=== PATIENT | female | born 1945 | race Caucasian/White ===

== ENCOUNTER 2025-10-18 00:23 | Emergency (ER) | payer MEDICARE, SELFPAY ==
--- NOTE | ~2025-10-18 | CT_ITS ---
EXAM/PROCEDURE: CT lumbar spine wo con HISTORY: fall, unwitnessed, unknown mech, back pain COMPARISON: None available. TECHNIQUE: Lumbar spine CT FINDINGS: Chronic compression fracture L3 with vertebroplasty changes. No gross acute or aggressive bone or soft tissue process seen. Advanced degenerative changes throughout the lumbar spine involving both disc spaces and posterior elements. Severe degenerative changes at L3-4 with probably severe spinal canal stenosis. At least mild spinal canal stenosis at L4-5. Milder degenerative changes at levels above and below. IMPRESSION: No gross acute or aggressive bony or soft tissue process; advanced degenerative changes including moderate possibly severe spinal canal stenosis at L4-5. Correlate with lumbar spine MRI for optimal sensitivity as clinically appropriate. Note: Preliminary radiology report provided by stat read radiologist. Reviewed, dictated and finalized at location A. BREAKDOWN PROCESSOR IMPRESSION: No gross acute or aggressive bony or soft tissue process; advanced degenerative changes including moderate possibly severe spinal canal stenosis at L4-5. [place] elate with lumbar spine MRI for optimal sensitivity as clinically appropriate. Note: Preliminary radiology report provided by stat read radiologist.
--- NOTE | ~2025-10-18 | CT_ITS ---
CT HEAD NON-CONTRAST CT C-SPINE Clinical History: fall, unwitnessed, unknown [facility] Comparison: None Technique: Unenhanced axial images skull base to vertex. Coronal, sagittal reformats. Axial images thoracic inlet to skull base. Sagittal and coronal reformats. CT images acquired with automatic exposure control for dose reduction DLP: 681 mGy-cm Findings: Head: Large left MCA distribution encephalomalacia. Mild chronic white matter microvascular ischemic changes. Sulci, ventricles: Unremarkable. No intracerebral hemorrhage. No mass effect, midline shift, intra-/extra-axial fluid collection. Large chronic calvarial indentation right parietal. Visualized paranasal sinuses: Clear. Mastoid air cells: Clear. Posterior scalp cysts with calcifications. C-spine: Tiny avulsion fracture spinous process C1, seen only on sagittal. No other acute fracture. Grade 2 anterolisthesis C4 on 5. Vertebral bodies normal height and alignment. Moderate degenerative changes. Multilevel disc disease. Prevertebral soft tissues within normal limits. Visualized lung apices: Clear. Visualized thyroid: Unremarkable. No enlarged cervical nodes. IMPRESSION: HEAD: 1. No acute intracranial findings. C-SPINE: 1. Tiny avulsion fracture spinous process of C1. 2. Otherwise no acute abnormality. Reviewed, dictated and finalized at location R. STAFF ACCOUNTANT IMPRESSION: HEAD: 1. No acute intracranial findings. C-SPINE: 1. Tiny avulsion fracture spinous process of C1. 2. Otherwise no acute abnormality.
[2025-10-18 00:26] VITALS: BP 161/75; PULSE 52; RESP 15; TEMP 36.9; O2SAT 93
--- NOTE | 2025-10-18 00:37 | ED_ITS ---
HPI - Fall General Chief Complaint: Fall Stated Complaint: UNWITNESSED FALL Time Seen by Provider: 10/18/25 00:28 History of Present Illness HPI Narrative: Patient is an 80-year-old female who presents to the ER after sustaining hold unwitnessed. She is A&O x1 baseline. Per EMS patient has a history of a stroke. Upon time of examination patient endorses pain with palpation to neck and spine. It is unknown whether or not patient lost consciousness. Patient is not on blood thinners. Review of Systems Review of Systems: All systems reviewed & are unremarkable except as noted in HPI and below Exam Narrative: GENERAL: Well appearing, well-nourished, non-toxic, in no acute distress. HEAD: Normocephalic, atraumatic. NECK: Supple. No adenopathy, no masses. Pain with palpation to cervical spine RESPIRATORY: Airway patent, respirations nonlabored. Clear to auscultation bilaterally, no rales, rhonchi, wheezing. CARDIOVASCULAR: Regular rate and rhythm without murmurs, rubs, or gallops. Peripheral pulses 2+ and equal bilaterally. ABDOMINAL: Soft, nontender, nondistended, no hepatosplenomegaly. Normoactive BS. MUSCULOSKELETAL: Moves all extremities. Able to sit up in bed on own. Pain with palpation to lumbar spine SKIN: Warm, dry, normal color. No rashes. NEURO: A&O X1. Speech unclear (baseline) PSYCHIATRIC: Appropriate mood and affect. Normal interaction. Course Vital Signs Vital signs: Vital Signs Temperature 36.9 C 10/18/25 00:26 Pulse Rate 52 L 10/18/25 00:26 Respiratory Rate 15 10/18/25 00:26 Blood Pressure 161/75 H 10/18/25 00:26 Pulse Oximetry 93 10/18/25 00:26 Oxygen Delivery Room Air 10/18/25 00:26 Temperature 36.9 C 10/18/25 00:26 Pulse Rate 52 L 10/18/25 00:26 Respiratory Rate 15 10/18/25 00:26 Blood Pressure 161/75 H 10/18/25 00:26 Pulse Oximetry 93 10/18/25 00:26 Oxygen Delivery Room Air 10/18/25 00:26 MDM - Fall MDM Narrative Medical decision making narrative: Patient is an 80-year-old female who presents to the ER after sustaining hold unwitnessed. She is A&O x1 baseline. Per EMS patient has a history of a stroke. Upon time of examination patient endorses pain with palpation to neck and spine. It is unknown whether or not patient lost conscio usness. Patient is not on blood thinners. Labs Ordered: UA Imaging Ordered: CT head, CT cervical spine, CT lumbar spine Medications Ordered: None necessary Results: Patient's CT lumbar spine indicates no paraspinal soft tissue abnormality identified. No acute osseous traumatic injury or significant acute traumatic abnormal alignment involving the lumbar spine. Chronic compression fracture at L3 level with post vertebroplasty/kyphoplasty changes noted. Diffuse disc spondylosis with narrowing and marginal hypertrophic osteophyte changes. Vacuum phenomena at T12-L1, L1-L2, L4-L5, and L5-S1. Presumed incidental grade 1 anterolisthesis involving L4 on L5. Facet hypertrophic changes noted at several levels. Moderate canal narrowing at L4-L5 level secondary to annular disc bulge and facet hypertrophic changes. Patient's CT scan indicates no acute osseous traumatic injury or significant acute traumatic abnormal alignment involving the cervical spine. Her head CT scan indicates no intracranial hemorrhage. No significant mass effect. No skull fracture. No significant overlying soft tissue traumatic injury identified. No radiopaque foreign body or subcutaneous emphysema. Large area somewhat cystic chronic encephalomalacia involving the left MCA territory involving the temporoparietal regions with involvement of the posterior insular lobe. Diffuse underlying parenchymal involutional changes. Minimal periventricular deep white matter presumed chronic microvascular disease. The paranasal sinuses and mastoid air cells are well-aerated. Diagnosis: fall, lumbar strain Patient Education/Shared MDM: Patient's CT scans did not indicate any acute abnormalities. She is resting comfortably on her stretcher at time of reexamination. Patient will be discharged back to her long-term care nursing facility and should follow-up with her PCP as soon as possible for further evaluation and treatment. Pt will not be discharged home with any new prescriptions. Strict return precautions provided. Patient verbalized understanding and is in agreement with plan. Vital signs stable at time of discharge. All questions answered. Differential Diagnosis Differential diagnosis: Likely syncope, compression fracture, concussion with loss of consciousness and concussion without loss of consciousness Lab Data Attestation: I reviewed the patient's lab results. Labs: Lab Results 10/18/25 Range/Units 00:48 Urine Color Yellow (Yellow) Urine Appearance Clear (Clear) Urine pH 5.5 (5.0-9.0) Ur Specific [place] 1.010 (1.001-1.035) Urine Protein Negative (Negative) mg/dL Urine Glucose (UA) Negative (Negative) mg/dL Urine Ketones Negative (Negative) mg/dL Ur Blood (Man) Negative (Negative) Urine Nitrate Negative (Negative) Urine Bilirubin Negative (Negative) Urine Urobilinogen 0.2 (<2.0) mg/dL Leukocyte Esterase Rfl Negative (Negative) DAVID/UL Imaging Data Attestation: I personally reviewed and interpreted this imaging study as follows: Radiologist's impression: Patient's CT lumbar spine indicates no paraspinal soft tissue abnormality identified. No acute osseous traumatic injury or significant acute traumatic abnormal alignment involving the lumbar spine. Chronic compression fracture at L3 level with post vertebroplasty/kyphoplasty changes noted. Diffuse disc spondylosis with narrowing and marginal hypertrophic osteophyte changes. Vacuum phenomena at T12-L1, L1-L2, L4-L5, and L5-S1. Presumed incidental grade 1 anterolisthesis involving L4 on L5. Facet hypertrophic changes noted at several levels. Moderate canal narrowing at L4-L5 level secondary to annular disc bulge and facet hypertrophic changes. Patient's CT scan indicates no acute osseous traumatic injury or significant acute traumatic abnormal alignment involving the cervical spine. Her head CT scan indicates no intracranial hemorrhage. No significant mass effect. No skull fracture. No significant overlying soft tissue traumatic injury identified. No radiopaque foreign body or subcutaneous emphysema. Large area somewhat cystic chronic encephalomalacia involving the left MCA territory involving the temporoparietal regions with involvement of the posterior insular lobe. Diffuse underlying parenchymal involutional changes. Minimal periventricular deep white matter presumed chronic microvascular disease. The paranasal sinuses and mastoid air cells are well-aerated. Discharge Plan Discharge Clinical Impression: Fall, Acute on chronic back pain Patient Disposition: [facility]As[facility] Living Condition: Stable Instructions: Antibiotic Form, Fall Prevention for Older Adults (ED) Additional Instructions: Please return to the ER with any worsening symptoms. Follow-up with your primary care provider as soon as possible for further evaluation. Take all medications as prescribed, including regularly scheduled medications. You may take Tylenol and use lidocaine patches for pain control. Patient Language: Lithuanian Prescriptions: New acetaminophen 500 mg tablet 1,000 mg PO TID PRN (Reason: fever or pain) Qty: 30 0RF lidocaine 5 % adhesive patch,medicated 2 patch topical DAILY Qty: 30 0RF Rx Instructions: leave on most painful area for up to 12 hrs Follow-up/Referrals: UNKNOWN,DOCTOR [Primary Care Provider]
[2025-10-18 00:53] LABS: Add Urine Microscopic? NO; Appearance Urine Clear (Clear); Glucose Urine UA Negative (Negative); Leukocyte Esterase Ur Negative LEU/UL (Negative); Nitrate Urine Negative (Negative); Specific Grav Ur 1.010 (1.001-1.035)
[2025-10-18 01:21] VITALS: BP 157/73; PULSE 60; RESP 17; O2SAT 98
[2025-10-18 04:21] VITALS: BP 151/76; PULSE 59; RESP 15; O2SAT 97
--- NOTE | 2025-10-18 05:51 | PC.NURSE ---
EMS arrived to take pt to [facility]. [facility] called and notified
[2025-10-18 06:17] VITALS: BP 151/76; PULSE 59; RESP 15; O2SAT 97
== END 2025-10-18 06:20 ==
PROVIDERS: Emergency Provider Registered Nurse
DX: S19.9XXA Unspecified injury of neck, initial encounter (principal); S39.92XA Unspecified injury of lower back, initial encounter; G89.29 Other chronic pain; Z86.73 Personal history of transient ischemic attack (TIA), and cerebral infarction without residual deficits; M48.061 Spinal stenosis, lumbar region without neurogenic claudication; W19.XXXA Unspecified fall, initial encounter
CPT/HCPCS: 70450; 72125; 72131; 81003; 99284

== ENCOUNTER 2025-11-09 03:12 | Emergency (ER) | payer MEDICARE, SELFPAY ==
--- NOTE | ~2025-11-09 | CT_ITS ---
CT HEAD NON-CONTRAST CT C-SPINE Clinical History: unwitnessed fall, strike to head Comparison: CT brain and C-spine 10/18/2025 Technique: Unenhanced axial images skull base to vertex. Coronal, sagittal reformats. Axial images thoracic inlet to skull base. Sagittal and coronal reformats. CT images acquired with automatic exposure control for dose reduction DLP: 681 mGy-cm Findings: Head: Large left MCA distribution chronic infarct. Minimal chronic white matter microvascular ischemic changes. Large chronic calvarial indentation right parietal. Sulci, ventricles: Unremarkable. No intracerebral hemorrhage. No evidence acute territorial infarct. No mass effect, midline shift, intra-/extra-axial fluid collection. Visualized paranasal sinuses: Clear. Mastoid air cells: Clear. Posterior scalp cysts with calcifications as before. C-spine: No acute fracture. Tiny chronic avulsion fracture C1 spinous process. Chronic grade 2 anterolisthesis C4 on 5. Moderate degenerative changes. Disc spaces maintained. Prevertebral soft tissues within normal limits. Visualized lung apices: Clear. Visualized thyroid: Unremarkable. No enlarged cervical nodes. IMPRESSION: HEAD: 1. No acute intracranial findings. C-SPINE: 1. No acute fracture. Reviewed, dictated and finalized at location R. ER ROOM OPERATOR IMPRESSION: HEAD: 1. No acute intracranial findings. C-SPINE: 1. No acute fracture.
--- NOTE | ~2025-11-09 | XR_ITS ---
Examination: XR shoulder RT min 2V Clinical History: fall, hit right arm Comparison: None Technique: 3 views right shoulder Findings/impression: 1. No fracture or dislocation right shoulder. 2. Moderate degenerative changes glenohumeral and AC joints. Reviewed, dictated and finalized at location R. PINNER
[2025-11-09 03:28] VITALS: BP 139/68; PULSE 58; RESP 18; TEMP 36.7; O2SAT 100
--- NOTE | 2025-11-09 04:31 | ED.FALL ---
HPI - Fall General Chief Complaint: Fall Stated Complaint: FALL Time Seen by Provider: 11/09/25 04:27 Source: EMS Mode of arrival: EMS Limitations: dementia History of Present Illness HPI Narrative: This is an 80-year-old female with prior history of CVA in aphasic do that who presents [facility] the ED [facility] for an unwitnessed fall. Per EMS, patient was found on the ground by staff with hematoma on her scalp and injury to her right shoulder. She was responsive and needed help getting up. History otherwise limited due to the patient's aphasia. Related Data Allergies Allergy/AdvReac Type Severity Reaction Status Date / Time clarithromycin Allergy Unknown Unknown Verified 10/18/25 05:35 levofloxacin Allergy Unknown Unknown Verified 10/18/25 05:35 Review of Systems Review of Systems: ROS unobtainable: Yes unobtainable due to mental status Exam Narrative: APPEARANCE: No acute distress, nontoxic, resting in bed EYES: EOMI HEENT: Normocephalic, 2 cm laceration to the vertex of the scalp, bleeding controlled RESPIRATORY: No respiratory distress Clear to auscultation bilaterally with no rhonchi wheezing or rales. CARDIOVASCULAR: Regular rate and rhythm without murmurs rubs or gallops. ABDOMINAL: Soft, nontender, nondistended, no rebound or guarding MUSCULOSKELETAl: Moves all extremities. Mild tenderness and swelling over the right shoulder NEURO: Awake and alert. Aphasic, no focal deficits SKIN:: Warm, dry. No rashes lesions or abrasions PSYCHIATRIC: Normal affect/mood, Course Vital Signs Vital signs: Vital Signs Temperature 98.0 F 11/09/25 03:28 Pulse Rate 58 L 11/09/25 03:28 Respiratory Rate 18 11/09/25 03:28 Blood Pressure 139/68 11/09/25 03:28 Pulse Oximetry 100 11/09/25 03:28 Oxygen Delivery Room Air 11/09/25 03:28 Temperature 97.5 F L 11/09/25 06:34 Pulse Rate 54 L 11/09/25 06:34 Respiratory Rate 18 11/09/25 06:34 Blood Pressure 152/87 H 11/09/25 06:34 Pulse Oximetry 100 11/09/25 06:34 Oxygen Delivery Room Air 11/09/25 03:28 Procedures Laceration Laceration 1: Date: 11/09/25 Time: 06:30 Site: scalp Size (cm): 2 Description: linear Depth: simple, single layer Pre-repair: wound explored and irrigated ====== Skin Level ====== Skin layer closed with: herbert Number of sutures: 4 ====== Subcutaneous Layer ====== ====== Muscle Layer ====== ====== Tendon Layer ====== [facility] Narrative Medical decision making narrative: 80-year-old female Presenting for unwitnessed fall. On initial evaluation patient was in no acute distress afebrile, hemodynamic stable. She was dysphasic but this is baseline per [facility]. Differentials include but are not limited to: Fracture, sprain, strain, contusion, intracranial hemorrhage, concussion, subdural hematoma, fracture Notable exam findings: 2 cm laceration to the posterior scalp with bleeding controlled, mild swelling over the right shoulder I personally reviewed the patient's images and interpret as follows: Shoulder x-ray right: No acute fractures CT head and C-spine as interpreted by radiology: No acute abnormalities Patient remained at her baseline throughout her ED course. She was given an updated Tdap. Laceration was repaired as above: Patient tolerated procedure well. Patient was deemed appropriate for discharge back to [facility] at this time. Advised follow-up with the patient's PCP in the next week for re-evaluation and staple removal. Differential Diagnosis Differential Diagnosis: Fracture, sprain, strain, contusion, intracranial hemorrhage, concussion, subdural hematoma, fracture Imaging Data Attestation: I personally reviewed and interpreted this imaging study as follows: Radiologist's impression: ITS Impressions Cervical Spine CT 11/09/25 06:45 IMPRESSION: HEAD: 1. No acute intracranial findings. C-SPINE: 1. No acute fracture. Head CT 11/09/25 06:45 IMPRESSION: HEAD: 1. No acute intracranial findings. C-SPINE: 1. No acute fracture. Discharge Plan Discharge Clinical Impression: History of cardioembolic cerebrovascular accident (CVA) Fall Qualifiers: Encounter type: initial encounter Qualified Code(s): W19.XXXA - Unspecified fall, initial encounter Laceration of scalp Qualifiers: Encounter type: initial encounter Qualified Code(s): S01.01XA - Laceration without foreign body of scalp, initial encounter Patient Disposition: Home Condition: Stable Instructions: Antibiotic Form, Head Injury (ED), Staple Care (ED) Additional Instructions: [place] may be removed in the next 5-7 days. Patient Language: Zimbabwean Prescriptions: No Action acetaminophen 500 mg tablet 1,000 mg PO TID PRN (Reason: fever or pain) Qty: 30 0RF lidocaine 5 % adhesive patch,medicated 2 patch topical DAILY Qty: 30 0RF Rx Instructions: leave on most painful area for up to 12 hrs Follow-up/Referrals: UNKNOWN,DOCTOR [Primary Care Provider]
[2025-11-09] MEDS: TETANUS,DIPHTHERIA,AC PERTUSSIS ADULT (0.5 ML) BOOSTRIX IM (05:33)
[2025-11-09 06:34] VITALS: BP 152/87; PULSE 54; RESP 18; TEMP 36.4; O2SAT 100
== END 2025-11-09 06:38 ==
PROVIDERS: Emergency Provider Student in an Organized Health Care Education/Training Program
DX: S01.01XA Laceration without foreign body of scalp, initial encounter (principal); S49.91XA Unspecified injury of right shoulder and upper arm, initial encounter; Z23 Encounter for immunization; I69.920 Aphasia following unspecified cerebrovascular disease; W19.XXXA Unspecified fall, initial encounter
CPT/HCPCS: 12001; 70450; 72125; 73030; 90471; 90715; 99284

== ENCOUNTER 2025-11-16 08:18 | Emergency (ER) | payer MEDICARE, SELFPAY ==
--- NOTE | ~2025-11-16 | CT_ITS ---
EXAMINATION:CT diagnostic chest w con DATE: 11/16/2025 09:18 INDICATION: Left-sided chest pain status post fall TECHNIQUE: Computed tomography (CT) of the chest was performed without intravenous contrast. The dose-length product (DLP) was 143.52 mGy-cm. COMPARISON: Lower chest portion of lumbar spine CT October 18, 2025.. FINDINGS: Fibrotic and atelectatic appearing changes in the left lung base. Large hiatal hernia noted with most of the gastric body herniated into the lower chest; no obvious volvulus. Air cysts formation present along the left lateral margin of the hernia not grossly changed from the October 18 exam. No pneumothorax hemothorax or pulmonary contusion seen. Heart and great vessels appear normal with no thoracic aortic aneurysm, dissection or acute aortic injury. Central and main pulmonary arteries are patent. Heart size normal with no significant pericardial effusion. Coronary artery calcification present. No displaced acute appearing rib fracture. Dystrophic cortical changes along the inferior margin of the posterior ninth and 10th ribs may be from old injury. Diffuse osteopenic, degenerative and kyphotic changes throughout the thoracic spine with no thoracic vertebral body fracture seen. Vertebroplasty changes present at L2. No bulky lymphadenopathy. Central and large airways are patent. No acute abnormality seen in the visualized upper abdomen or extrathoracic soft tissues. IMPRESSION: 1. No gross acute intrathoracic injury. 2. Probable old fractures involving the posterior left ninth and 10th ribs. Correlate with clinical exam. 3. Large hiatal hernia with most of the gastric body herniated into the lower chest. Reviewed, dictated and finalized at location A. D CARE WORKER IMPRESSION: 1. No gross acute intrathoracic injury. 2. Probable old fractures involving the posterior left ninth and 10th ribs. Cor relate with clinical exam. 3. Large hiatal hernia with most of the gastric body herniated into the lower c hest.
--- NOTE | ~2025-11-16 | CT_ITS ---
CT HEAD NON-CONTRAST Clinical History: fall/head injury Comparison: 11/09/2025 Technique: Unenhanced axial images skull base to vertex Coronal, sagittal reformats CT images acquired with automatic exposure control for dose reduction DLP: 681 mGy-cm Findings: Large left MCA distribution chronic infarct. Mild chronic white matter microvascular ischemic changes. Large chronic calvarial indentation right parietal. Sulci, ventricles: Ex vacuo dilatation left lateral ventricle. No intracerebral hemorrhage. No evidence acute territorial infarct. No mass effect, midline shift. Bony calvarium intact. Visualized paranasal sinuses: Clear. Mastoid air cells: Clear. Posterior scalp cysts with calcifications as before. IMPRESSION: 1. No acute intracranial findings or change from one week prior. Reviewed, dictated and finalized at location R. [employer]
[2025-11-16 08:17] VITALS: BP 120/54; PULSE 65; RESP 14; TEMP 37.2; O2SAT 100
[2025-11-16 09:10] LABS: Hematocrit 27.7 % (37.0-47.0); Hemoglobin 8.8 g/dL (12.0-15.0); Immature Granulocyte Percent A 0.4 % (0-0.5); Lymphocytes Absolute Auto 0.69 K/mm3 (0.9-3.2); Mean Corpuscular HGB Conc 31.8 g/dl (32-36); Mean Corpuscular Hemoglobin 26.0 pg (26-34); Mean Corpuscular Volume 82.0 fl (80-100); Nucleated Red Blood Cells Absolute Auto 0.000 K/mm3 (0.0-0.012); Nucleated Red Blood Cells Perc 0.0 % (0.0-0.2); Platelet Count Result 212 k/mm3 (150-375); Red Blood Count 3.38 M/mm3 (4.2-5.4); White Blood Count 7.5 K/mm3 (4.5-10.0)
[2025-11-16 09:12] LABS: Estimated CRCL calculation 27 ml/min; Estimated Glomerular Filt Rate 43
[2025-11-16 09:34] LABS: Anion Gap 9 mmol/L (4-12); Blood Urea Nitrogen 11 mg/dL (7-17); Calcium 8.1 mg/dL (8.4-10.2); Carbon Dioxide 22 mmol/L (22-30); Chloride 108 mmol/L (98-107); Estimated CRCL calculation 29 ml/min; Estimated Glomerular Filt Rate 48; Glucose 152 mg/dL (65-110); Potassium 3.9 mmol/L (3.4-5.0); Sodium 139 mmol/L (137-145)
[2025-11-16 10:10] VITALS: BP 120/54; PULSE 60; RESP 14; O2SAT 100
--- NOTE | 2025-11-16 10:28 | ED.FALL ---
HPI - Fall General Chief Complaint: Fall Stated Complaint: fall last noc, unwitnessed Time Seen by Provider: 11/16/25 08:31 History of Present Illness HPI Narrative: Patient is an 80-year-old female with history of dementia who presents ER after having a unwitnessed fall at her facility. No new outward injuries that were noticed by staff. Patient is able to move her extremities without issue. She does have a nonhealing ulcer to the right side of her nose. Related Data Allergies Allergy/AdvReac Type Severity Reaction Status Date / Time clarithromycin Allergy Unknown Unknown Verified 11/16/25 08:33 levofloxacin Allergy Unknown Unknown Verified 11/16/25 08:33 Review of Systems Review of Systems: ROS unobtainable: Yes unobtainable due to mental status PMFSH Past Medical History Medical History (Updated 11/16/25 @ 11:35 by Ayaz Rachel MD) Dementia Hypothyroidism Hypertension Surgical History Surgical History (Updated 11/16/25 @ 11:35 by Ayaz Rachel MD) No history of previous surgery Exam Narrative: GENERAL: Well-appearing, well-nourished, and in no acute distress. HEAD: Normocephalic, atraumatic. EYES: PERRL and EOMI. ENT: Mucous membranes moist. Large nonhealing ulcer to the right nose CHEST: Clear to auscultation. No respiratory distress. HEART: Regular rate and rhythm. Normal peripheral pulses. EXTREMITIES: Normal range of motion. No edema. SKIN: Warm, dry, no rash. NEURO: Alert and oriented x0. PSYCH: Normal mood and affect. Course Course Emergency Course: No acute injuries. Appropriate for discharge back to facility. No urine infection. Vital Signs Vital signs: Vital Signs Temperature 99.0 F 11/16/25 08:17 Pulse Rate 65 11/16/25 08:17 Respiratory Rate 14 11/16/25 08:17 Blood Pressure 120/54 L 11/16/25 08:17 Pulse Oximetry 100 11/16/25 08:17 Oxygen Delivery Room Air 11/16/25 08:17 Temperature 99.0 F 11/16/25 08:17 Pulse Rate 60 11/16/25 10:10 Respiratory Rate 14 11/16/25 10:10 Blood Pressure 120/54 L 11/16/25 10:10 Pulse Oximetry 100 12/19/25 10:10 Oxygen Delivery Room Air 11/16/25 08:17 MDM Differential Diagnosis Differential Diagnosis: Intracranial hemorrhage, UTI, sepsis, SCOTT Lab Data MDM Lab Attestation statement: I personally reviewed the patient's lab results. 11/16/25 08:59 11/16/25 09:10 Labs: Lab Results 11/16/25 11/16/25 Range/Units 08:59 09:10 WBC 7.5 (4.5-10.0) K/mm3 RBC 3.38 L (4.2-5.4) M/mm3 Hgb 8.8 L (12.0-15.0) g/dL Hct 27.7 L (37.0-47.0) % MCV 82.0 (80-100) fl MCH 26.0 (26-34) pg MCHC 31.8 L (32-36) g/dl RDW 13.5 (11.5-14.5) % Plt Count 212 (150-375) k/mm3 MPV 9.8 (7.4-10.4) fl Immature Gran % (Auto) 0.4 (0-0.5) % Neut % (Auto) 76.2 H (45.5-73.1) % Lymph % (Auto) 9.2 L (18.3-44.2) % [place] % (Auto) 11.0 H (2.6-8.5) % Eos % (Auto) 1.6 (0-4.4) % Baso % (Auto) 1.6 H (0.2-1.2) % Lymph # (Auto) 0.69 L (0.9-3.2) K/mm3 [place] # (Auto) 0.8 H (0.1-0.6) K/mm3 Eos # (Auto) 0.1 (0-0.3) K/mm3 Baso # (Auto) 0.1 (0.0-0.1) K/mm3 Abs Immat Gran (auto) 0.03 (0.00-0.031) K/mm3 Absolute Neuts (auto) 5.7 (1.3-6.7) K/mm3 Absolute Nucleated RBC 0.000 (0.0-0.012) K/mm3 Nucleated RBC % 0.0 (0.0-0.2) % Sodium 139 (137-145) mmol/L Potassium 3.9 (3.4-5.0) mmol/L Chloride 108 H (98-107) mmol/L Carbon Dioxide 22 (22-30) mmol/L Anion Gap 9 (4-12) mmol/L BUN 11 (7-17) mg/dL Creatinine 1.10 H 1.20 (0.7-1.0) mg/dL Estim Creat Clear Calc 29 27 ml/min Estimated GFR 48 L 43 L (59 - ) Glucose 152 H (65-110) mg/dL Calcium 8.1 L (8.4-10.2) mg/dL Imaging Data Radiologist's impression: ITS Impressions Head CT 11/16/25 09:20 IMPRESSION: 1. No acute intracranial findings or change from one week prior. Chest CT 11/16/25 09:33 IMPRESSION: 1. No gross acute intrathoracic injury. 2. Probable old fractures involving the posterior left ninth and 10th ribs. Correlate with clinical exam. 3. Large hiatal hernia with most of the gastric body herniated into the lower chest. Discharge Plan Discharge Clinical Impression: Accident due to mechanical fall without injury Patient Disposition: Home Condition: Stable Additional Instructions: Return to the ER if you have new injury, new fall, or new concerns. Patient Language: Hong Konger Prescriptions: No Action acetaminophen 500 mg tablet 1,000 mg PO TID PRN (Reason: fever or pain) Qty: 30 0RF lidocaine 5 % adhesive patch,medicated 2 patch topical DAILY Qty: 30 0RF Rx Instructions: leave on most painful area for up to 12 hrs Follow-up/Referrals: UNKNOWN,DOCTOR [Primary Care Provider] - 1 Week
[2025-11-16 11:03] LABS: Add Urine Microscopic? NO; Appearance Urine Clear (Clear); Glucose Urine UA Negative (Negative); Leukocyte Esterase Ur Negative LEU/UL (Negative); Nitrate Urine Negative (Negative); Specific Grav Ur 1.040 (1.001-1.035)
--- NOTE | 2025-11-16 11:38 | PC.NURSE ---
report called to leena and given to Nadya ROSE. requested that patient get a covid/flu swab prior to coming back to the facility, md aware.
[2025-11-16 12:02] VITALS: BP 131/65; PULSE 70; RESP 14; O2SAT 99
[2025-11-16 12:19] LABS: Influenza A QL RT-PCR Positive (Negative); Influenza B QL RT-PCR Negative (Negative); RSV RNA, RT-PCR Negative (Negative); SARS-CoV-2 RNA PCR Negative (Negative)
--- NOTE | 2025-11-16 12:21 | PC.NURSE ---
per paperwork from [facility], patient has a guardian which is her son, son did not answer, message left to contact [facility] at [phone].
== END 2025-11-16 13:13 ==
PROVIDERS: Emergency Provider Emergency Medicine
DX: Z03.89 Encounter for observation for other suspected diseases and conditions ruled out (principal); F03.90 Unspecified dementia, unspecified severity, without behavioral disturbance, psychotic disturbance, mood disturbance, and anxiety; E03.9 Hypothyroidism, unspecified; I10 Essential (primary) hypertension; W19.XXXA Unspecified fall, initial encounter
CPT/HCPCS: 36415; 70450; 71260; 80048; 81003; 85025; 87637; 99284; Q9967